=== PATIENT | female | born 1955 | race Caucasian/White ===

== ENCOUNTER 2020-12-06 14:42 | Inpatient (IN) | payer MEDICARE, OTHER ==
--- NOTE | 2020-12-06 15:12 | ED ---
General Adult HPI - General Chief complaint: Shortness of Breath Stated complaint: Dyspnea Time Seen by Provider: 12/06/20 14:46 Source: patient, EMS, RN notes reviewed, old records reviewed (Chart reviewed from [facility]) Mode of arrival: EMS Limitations: no limitations - History of Present Illness Initial comments: Patient is a pleasant 65-year-old female presenting to the emergency Department as a transfer from [facility]. Patient has been complaining of exertional dyspnea progressive over the past 4 days. No cough. Patient states limited ability to have related this time more than 5-10 feet. No chest pain. Patient states she did have repair of her aorta 2 years ago and has been having some symptoms since that time. There is concerned that there may need further repair done. Patient does have known murmur since then. Patient states dyspnea is mild at rest. No leg pain or leg swelling. No fever or cough. Review of Systems ROS Statement: Those systems with pertinent positive or pertinent negative responses have been documented in the HPI. ROS Other: All systems not noted in ROS Statement are negative. Constitutional: Denies: fever Eyes: Denies: eye pain ENT: Denies: ear pain Respiratory: Reports: as per HPI, dyspnea. Denies: cough Cardiovascular: Denies: chest pain Endocrine: Reports: fatigue Gastrointestinal: Denies: abdominal pain Genitourinary: Denies: dysuria Musculoskeletal: Denies: back pain Skin: Denies: rash Neurological: Denies: weakness Past Medical History Past Medical History: Chest Pain / Angina, Heart Failure, Skin Disorder, Thyroid Disorder History of Any Multi-Drug Resistant Organisms: None Reported Past Surgical History: Coronary Bypass/CABG, Tubal Ligation Past Psychological History: Anxiety Smoking Status: Former smoker Past Alcohol Use History: None Reported Past Drug Use History: None Reported General Exam Limitations: no limitations General appearance: alert, in no apparent distress Head exam: Present: normocephalic Eye exam: Present: normal appearance, PERRL ENT exam: Present: normal oropharynx Neck exam: Present: normal inspection Respiratory exam: Present: normal lung sounds bilaterally Cardiovascular Exam: Present: regular rate, normal rhythm, systolic murmur GI/Abdominal exam: Present: soft. Absent: tenderness Extremities exam: Present: normal inspection Neurological exam: Present: alert Psychiatric exam: Present: normal affect, normal mood Skin exam: Present: normal color Course Vital Signs 12/06/20 14:45 Temperature 98.2 F Pulse Rate 72 Respiratory 18 Rate Blood Pressure 178/74 O2 Sat by Pulse 97 Oximetry Medical Decision Making - Medical Decision Making Patient was made aware plan. Dr. Castillo has been paged for admission, covering for Dr. Atwood. Disposition Clinical Impression: Exertional dyspnea Disposition: ADMITTED IP TO THIS HOSP Is patient prescribed a controlled substance at d/c from ED?: No Referrals: Andrey Michael MD [Primary Care Provider] - 1-2 days Decision Time: 15:32
[2020-12-06] MEDS ORDERED: ASPIRIN 325 MG TAB PO STA (15:32)
[2020-12-06] MEDS: FUROSEMIDE 10 MG/ML 4 ML VIAL IV SCH (16:58)
[2020-12-06] MEDS ORDERED: TEMAZEPAM 15 MG CAP PO PRN (19:05)
[2020-12-06] MEDS ORDERED: ALPRAZolam 0.25 MG TAB PO PRN (19:05)
--- NOTE | 2020-12-06 19:36 | XR ---
EXAMINATION TYPE: XR chest 1V portable DATE OF EXAM: 12/06/2020 COMPARISON: NONE HISTORY: Short of breath TECHNIQUE: Single view FINDINGS: Heart is enlarged. There is no gross heart failure. There is some coarsening of interstitia l markings. There are sternal wires. There are chest leads. Costophrenic angles are clear. IMPRESSION: Mild increased lung markings. No obvious heart failure. Cardiomegaly.
[2020-12-06] MEDS: METOPROLOL TARTRATE 25 MG TAB PO SCH (20:22)
[2020-12-06] MEDS: ACETAMINOPHEN TAB 500 MG TAB PO SCH (20:22)
[2020-12-06] MEDS: HEPARIN SODIUM,PORCINE 5,000 UNIT/ML 1 ML VIAL SQ SCH (20:22)
[2020-12-06] MEDS: ATORVASTATIN 20 MG TAB PO SCH (20:23)
--- NOTE | 2020-12-06 20:55 | HP ---
HISTORY AND PHYSICAL DATE OF SERVICE: 12/06/2020 CHIEF COMPLAINT: Shortness of breath. HISTORY OF PRESENT ILLNESS: This is a 65-year-old woman with a past medical history of multiple medical problems, CHF, history of hypothyroidism, history of CAD, CABG, history of anxiety, being followed by Nadira German in the outpatient setting was not feeling well. Today, the patient had shortness of breath which has increased, two years since last aortic surgery patient had at [facility]. The patient presented to [facility] today with complaints of shortness of breath. The patient was unable to walk more than 5 to 10 feet. The patient had repair of aortic aneurysm. Because of increasing difficulty, the patient was transferred to [facility] and was admitted for further evaluation and treatment. There is no history of fever, rigors. No history of headache, loss of consciousness or seizures at this time. The patient is started on IV Lasix. PAST MEDICAL HISTORY: History of CHF, history of aortic surgery, history of anxiety, history of abdominal aortic aneurysm, which was to be managed later by [facility] Cardiology according to the patient. MEDICATIONS: Home medications are: Vitamin E, vitamin D3, Tylenol, vitamin B12, calcium, vitamins, multivitamins, metoprolol, magnesium, levothyroxine, Lexapro, aspirin, and Lipitor. Doses are reviewed. ALLERGIES: None. FAMILY HISTORY: No history of heart disease or strokes in the family. SOCIAL HISTORY: Previous history of smoking. No history of current smoking or alcohol. REVIEW OF SYSTEMS: ENT: No diminished vision. No diminished hearing. Cardiovascular as mentioned earlier. RESPIRATORY: As mentioned earlier. GI no nausea or vomiting. : No dysuria. NERVOUS system: No numbness, weakness. ALLERGY/IMMUNOLOGY: No asthma or hayfever. MUSCULOSKELETAL: As mentioned earlier. HEMATOLOGY/ONCOLOGY: No history of anemia. ENDOCRINE: Hypothyroid. CONSTITUTIONAL: As mentioned earlier. DERMATOLOGY negative. RHEUMATOLOGY: Negative. PSYCHIATRY as mentioned earlier. PHYSICAL EXAM: Patient is alert, oriented x3. The pulse is 72. Blood pressure 178/74, respiration 18, temperature 98.2, pulse ox 97% on 2 L. HEENT: Conjunctivae normal. NECK: No JVD. CARDIOVASCULAR: S1, S2. No S3, no S4. RESPIRATORY: Breath sounds diminished in the bases. A few scattered rhonchi and crackles. ABDOMEN: Soft, obese, nontender. LEGS: No edema. No swelling. NERVOUS SYSTEM: Higher functions as mentioned earlier. Moves all 4 limbs. No focal motor or sensory deficits. LYMPHATICS: No lymph nodes palpable in the neck, axillae or groin. SKIN: No ulcer, rash or bleeding. JOINTS: No active deforming arthropathy. LABS: Covid 19 is negative. ASSESSMENT: 1. Shortness of breath with possible congestive heart failure acute exacerbations, ejection fraction unknown. 2. History of aortic aneurysm repair. 3. Abdominal aortic aneurysm. 4. History of congestive heart failure. 5. Hypothyroidism. 6. History of coronary artery disease, coronary artery bypass grafting. 7. History of anxiety. 8. Obesity with body mass of 39.1. 9. Remote history of nicotine dependence. 10.FULL CODE. RECOMMENDATIONS AND DISCUSSION: In this 65-year-old woman who presented with multiple complex medical issues, we will monitor the patient closely, continue the current management, medications and symptomatic treatment. I would recommend a 2D echo with Doppler and also Lasix. Cardiology consultation. Monitor fluid/electrolyte balance closely. Repeat labs. Monitor creatinine closely. Overall prognosis guarded because of multiple complex medical issues. Further recommendations to follow. A copy of this dictation being forwarded to Dr. Nadira German. MMELMERL / IJN: [id number] / NATHANIEL
[2020-12-06 22:03] LABS: Basophils # (A) 0.1 k/uL (0-0.2); Basophils % (A) 1 %; Eosinophils # (A) 0.2 k/uL (0-0.7); Eosinophils % (A) 2 %; HCT 40.5 % (34.0-46.0); HGB 12.8 gm/dL (11.4-16.0); Lymphocytes # (A) 2.2 k/uL (1.0-4.8); Lymphocytes % (A) 24 %; MCH 30.4 pg (25.0-35.0); MCHC 31.6 g/dL (31.0-37.0); MCV 96.2 fL (80.0-100.0); Mean Platelet Volume 7.4; Monocytes # (A) 0.5 k/uL (0-1.0); Monocytes % (A) 6 %; Neutrophils # (A) 6.1 k/uL (1.3-7.7); Neutrophils % (A) 67 %; Platelet Count 304 k/uL (150-450); RBC 4.21 m/uL (3.80-5.40); RDW 14.7 % (11.5-15.5); WBC 9.1 k/uL (3.8-10.6)
[2020-12-06 22:17] LABS: ALT 32 U/L (4-34); AST 34 U/L (14-36); African American GFR (CKD) >90 (>60 ml/min/1.73 sqM); Albumin 4.2 g/dL (3.5-5.0); Albumin/Globulin Ratio 1.6; Alkaline Phosphatase 88 U/L (38-126); Anion Gap 7 mmol/L; Blood Urea Nitrogen 16 mg/dL (7-17); Calcium 9.7 mg/dL (8.4-10.2); Carbon Dioxide 26 mmol/L (22-30); Chloride 103 mmol/L (98-107); Globulin 2.7 g/dL; Glucose 102 mg/dL (74-99); Non-African American GFR(CKD) 80 (>60 ml/min/1.73 sqM); Potassium 3.8 mmol/L (3.5-5.1); Sodium 136 mmol/L (137-145); Total Bilirubin 0.5 mg/dL (0.2-1.3); Total Protein 6.9 g/dL (6.3-8.2)
[2020-12-07] MEDS: FUROSEMIDE 10 MG/ML 4 ML VIAL IV SCH ×4 (00:25→23:19)
[2020-12-07] MEDS: LEVOTHYROXINE 100 MCG TAB PO SCH (05:48)
[2020-12-07 08:06] LABS: African American GFR (CKD) 81 (>60 ml/min/1.73 sqM); Anion Gap 10 mmol/L; Blood Urea Nitrogen 15 mg/dL (7-17); Calcium 10.1 mg/dL (8.4-10.2); Carbon Dioxide 31 mmol/L (22-30); Chloride 99 mmol/L (98-107); Glucose 89 mg/dL (74-99); Non-African American GFR(CKD) 70 (>60 ml/min/1.73 sqM); Potassium 4.2 mmol/L (3.5-5.1); Sodium 140 mmol/L (137-145)
[2020-12-07] MEDS: MAGNESIUM OXIDE 400 MG TAB PO SCH (08:34)
[2020-12-07] MEDS: PANTOPRAZOLE 40 MG TABLET PO SCH (08:34)
[2020-12-07] MEDS: CHOLECALCIFEROL 25 MCG (1000 IU) TABLET PO SCH (08:35)
[2020-12-07] MEDS: ASCORBIC ACID 500 MG TAB PO SCH (08:35)
[2020-12-07] MEDS: MULTIVITAMINS, THERA 1 EACH TAB PO SCH (08:35)
[2020-12-07] MEDS: CYANOCOBALAMIN 500 MCG TAB PO SCH (08:35)
[2020-12-07] MEDS: CALCIUM CARB-VIT D 500 MG-5 MCG TAB PO SCH (08:35)
[2020-12-07] MEDS: METOPROLOL TARTRATE 25 MG TAB PO SCH ×2 (08:35→21:34)
[2020-12-07] MEDS: ASPIRIN 81 MG PO SCH (08:35)
[2020-12-07] MEDS: HEPARIN SODIUM,PORCINE 5,000 UNIT/ML 1 ML VIAL SQ SCH ×2 (08:36→21:34)
[2020-12-07] MEDS ORDERED: DILTIAZEM DRIP BOLUS FROM BAG 1 MG SOLN IV ONE (08:47)
[2020-12-07] MEDS ORDERED: DILTIAZEM 125 MG in SODIUM CHLORIDE 0.9% 100 ML IV SCH (09:00)
[2020-12-07] MEDS: ACETAMINOPHEN TAB 500 MG TAB PO SCH ×2 (10:15→21:33)
[2020-12-07] MEDS: VITAMIN E (DL,TOCOPHERYL ACET) 400 UNIT CAP PO SCH (10:16)
[2020-12-07] MEDS: PYRIDOXINE 50 MG TAB PO SCH (10:16)
[2020-12-07] MEDS: ESCITALOPRAM 20 MG TAB PO SCH (10:16)
[2020-12-07] MEDS ORDERED: ASPIRIN 325 MG TAB PO SCH (12:00)
[2020-12-07 12:10] LABS: Basophils # (A) 0.09 X 10*3/uL (0.00-0.10); Eosinophils # (A) 0.26 X 10*3/uL (0.04-0.35); HCT 41.1 % (37.2-46.3); HGB 13.2 g/dL (12.0-15.0); Lymphocytes # (A) 2.53 X 10*3/uL (0.90-5.00); Lymphocytes % (A) 29.5 %; MCH 31.2 pg (27.0-32.0); MCHC 32.1 g/dL (32.0-37.0); MCV 97.2 fL (80.0-97.0); Mean Platelet Volume 10.6 fL (9.5-12.2); Monocytes % (A) 9.3 %; Neutrophils # (A) 4.88 X 10*3/uL (1.80-7.70); Platelet Count 336 X 10*3/uL (140-440); RBC 4.23 X 10*6/uL (4.10-5.20); RDW 14.6 % (11.5-14.5); WBC 8.58 X 10*3/uL (4.50-10.00)
--- NOTE | 2020-12-07 15:37 | P.CRDCN ---
<Jane Mckinnon - Last Filed: 12/07/20 15:36> History of Present Illness Consult date: 12/07/20 History of present illness: CHIEF COMPLAINT: Shortness of breath HISTORY OF PRESENT ILLNESS: This is a 65-year-old female with a past medical history significant for hypertension, hyperlipidemia, and aortic aneurysm repair 2 years ago. Patient follows with a furniture inspector out of [facility] and a cardiothoracic surgeon at [facility] in [place]. We have been asked to see the patient in consultation for shortness of breath. Patient was transferred from [facility] for further evaluation Patient states since having her aortic surgery 2 years ago she has been experiencing shortness of breath. She states over the past week or shortness of breath has worsened. She states she is only short of breath with exertion and denies any shortness of breath at rest. She denies any chest pain or pressure. Patient states that she was told by her cardiothoracic surgeon she would need to have her aneurysm repaired by the end of 2019 and states "he told me the repair the coming undone and needs to be fixed again". Patient reports due to the Covid pandemic, she has not underwent surgery for this. DIAGNOSTICS: EKG reveals sinus mechanism with no signs of acute ischemia Chest xray mild increased lung markings. No obvious heart failure. Cardiomegaly. Laboratory data: WBC 8.58. Hemoglobin 13.2. Platelet count 336. D-dimer 2.28. Sodium 140. Potassium 4.2. BUN 15. Creatinine 0.87. Troponin negative 2. Current home cardiac medications include metoprolol tartrate 25 mg twice a day, aspirin 81 mg daily, Lipitor 20 mg daily Patient underwent CTA of chest abdomen and pelvis at [facility] which according to transfer records revealed irregularity of the ascending aorta at aortic valve and origin of arch felt to represent postop changes. NAP of the aorta seen and size of ascending is within normal limits. Descending thoracic aorta is prominent, [id number] aneurysmal, upwards of 3.5 cm stable in comparison to 2018 CT. Stable AAA aneurysms proximal SMA 3.6 cm and distal 3.7 cm REVIEW OF SYSTEMS: At the time of my exam: CONSTITUTIONAL: Denies fever or chills. HEENT: Denies blurred vision, vision changes, or eye pain. Denies hemoptysis CARDIOVASCULAR: Denies chest pain, orthopnea, PND or palpitations RESPIRATORY: Reports shortness of breath with exertion GASTROINTESTINAL: Denies abdominal pain. Denies nausea or vomiting. HEMATOLOGIC: Denies bleeding disorders. GENITOURINARY: Denies any blood in urine. SKIN: Denies pruitis. Denies rash. PHYSICAL EXAM: VITAL SIGNS: Reviewed. GENERAL: Well-developed in no acute distress. HEENT: Head is normocephalic. Pupils are equal, round. Sclerae anicteric. Mucous membranes of the mouth are moist. Neck supple. No JVD or thyromegaly LUNGS: Respirations even and unlabored. Lungs diminished bilaterally with fine bibasilar rales HEART: Regular rate and rhythm. S1 and S2 heard. Systolic murmur auscultated. ABDOMEN: Soft. Nondistended. Nontender. EXTREMITIES: Normal range of motion. No clubbing or cyanosis. Peripheral pulses intact. Trace lower extremity edema NEUROLOGIC: Awake and alert. Oriented x 3. ASSESSMENT: Exertional shortness of breath Suspected acute heart failure, EF unknown, echo pending, not on diuretic therapy outpatient Hyperlipidemia History of aortic aneurysm repair, 2 years ago History of abdominal aortic aneurysm and thoracic aortic aneurysm Hypothyroidism Elevated d-dimer, patient had CTA performed at [facility] with no mention of PE per radiology dictation Obesity: BMI 39.1 PLAN: Obtain 2-D echo to assess cardiac structure and function Resume home cardiac medications Continue IV Lasix Obtain BNP Daily weights Accurate I&O Monitor kidney function Further recommendations pending patient's course Nurse practitioner note has been reviewed by physician. Signing provider agrees with the documented findings, assessment, and plan of care. Past Medical History Past Medical History: Chest Pain / Angina, Heart Failure, Skin Disorder, Thyroid Disorder History of Any Multi-Drug Resistant Organisms: None Reported Past Surgical History: Coronary Bypass/CABG, Tubal Ligation Past Psychological History: Anxiety Smoking Status: Former smoker Past Alcohol Use History: None Reported Past Drug Use History: None Reported Medications and Allergies Home Medications Medication Instructions Recorded Confirmed Type Acetaminophen [Tylenol] 1,500 mg PO BID 12/06/20 12/06/20 History Ascorbic Acid [Vitamin C] 1,000 mg PO DAILY 12/06/20 12/06/20 History Aspirin EC [Ecotrin Low Dose] 81 mg PO DAILY 12/06/20 12/06/20 History Atorvastatin [Lipitor] 20 mg PO HS 12/06/20 12/06/20 History Calcium Carbonate [Calcium] 600 mg PO DAILY 12/06/20 12/06/20 History Cholecalciferol [Vitamin D3 (25 25 mcg PO DAILY 12/06/20 12/06/20 History Mcg = 1000 Iu)] Cyanocobalamin (Vitamin B-12) 1,000 mcg PO DAILY 12/06/20 12/06/20 History [Vitamin B-12] Escitalopram [Lexapro] 20 mg PO DAILY 12/06/20 12/06/20 History Levothyroxine Sodium [Synthroid] 100 mcg PO DAILY 12/06/20 12/06/20 History Magnesium 250 mg PO DAILY 12/06/20 12/06/20 History Metoprolol Tartrate 25 mg PO BID 12/06/20 12/06/20 History Multivitamins, Thera [Multivitamin 1 tab PO DAILY 12/06/20 12/06/20 History (formulary)] Pyridoxine HCl (Vitamin B6) 100 mg PO DAILY 12/06/20 12/06/20 History [Vitamin B-6] Vitamin E 400 unit PO DAILY 12/06/20 12/06/20 History Allergies Allergy/AdvReac Type Severity Reaction Status Date / Time No Known Allergies Allergy Verified 12/06/20 16:28 Physical Exam Vitals: Vital Signs Temp Pulse Pulse Resp BP BP Pulse Ox 12/07/20 08:10 97.7 F 69 16 147/56 94 L 12/07/20 02:30 98.0 F 67 16 134/66 92 L 12/07/20 02:00 8 L 15 12/07/20 00:10 8 L 15 12/07/20 00:00 98.2 F 82 15 171/55 92 L 12/06/20 20:23 78 18 164/52 97 12/06/20 17:00 70 18 184/58 98 12/06/20 14:45 98.2 F 72 18 178/74 97 Intake and Output 12/06/20 12/07/20 12/07/20 22:59 06:59 14:59 Other: Voiding Method Toilet # Voids 1 Weight 90.718 kg Results 12/07/20 06:55 12/07/20 06:55 Cardiac Enzymes 12/06/20 12/06/20 12/06/20 Range/Units 18:28 21:33 21:33 AST 34 (14-36) U/L Troponin I <0.012 <0.012 (0.000-0.034) ng/mL CBC 12/06/20 12/07/20 Range/Units 21:33 06:55 WBC 9.1 8.58 (3.8-10.6) k/uL RBC 4.21 4.23 (3.80-5.40) m/uL Hgb 12.8 13.2 (11.4-16.0) gm/dL Hct 40.5 41.1 (34.0-46.0) % Plt Count 304 336 (150-450) k/uL Comprehensive Metabolic Panel 12/06/20 12/07/20 Range/Units 21:33 06:55 Sodium 136 L 140 (137-145) mmol/L Potassium 3.8 4.2 (3.5-5.1) mmol/L Chloride 103 99 (98-107) mmol/L Carbon Dioxide 26 31 H (22-30) mmol/L BUN 16 15 (7-17) mg/dL Creatinine 0.79 0.87 (0.52-1.04) mg/dL Glucose 102 H 89 (74-99) mg/dL Calcium 9.7 10.1 (8.4-10.2) mg/dL AST 34 (14-36) U/L ALT 32 (4-34) U/L Alkaline Phosphatase 88 (38-126) U/L Total Protein 6.9 (6.3-8.2) g/dL Albumin 4.2 (3.5-5.0) g/dL Current Medications Generic Name Dose Route Start Last Admin Trade Name Juniorq PRN Reason Stop Dose Admin Acetaminophen 1,500 mg 12/06/20 21:00 12/07/20 10:15 Acetaminophen Tab 500 Mg Tab PO 1,500 mg BID ERIC Administration Alprazolam 0.25 mg 12/06/20 19:05 Alprazolam 0.25 Mg Tab PO TID PRN Anxiety Ascorbic Acid 1,000 mg 12/07/20 09:00 12/07/20 08:35 Ascorbic Acid 500 Mg Tab PO 1,000 mg DAILY ERIC Administration Aspirin 81 mg 12/07/20 09:00 12/07/20 08:35 Aspirin 81 Mg PO 81 mg DAILY ERIC Administration Atorvastatin Calcium 20 mg 12/06/20 21:00 12/06/20 20:23 Atorvastatin 20 Mg Tab PO 20 mg HS ERIC Administration Calcium Carbonate 1 each 12/07/20 09:00 12/07/20 08:35 Calcium Carb-Vit D 500 Mg-5 Mcg Tab PO 1 each DAILY ERIC Administration Cholecalciferol 25 mcg 12/07/20 09:00 12/07/20 08:35 Cholecalciferol 25 Mcg (1000 Iu) Tablet PO 25 mcg DAILY ERIC Administration Cyanocobalamin 1,000 mcg 12/07/20 09:00 12/07/20 08:35 Cyanocobalamin 500 Mcg Tab PO 1,000 mcg DAILY ERIC Administration Escitalopram Oxalate 20 mg 12/07/20 09:00 12/07/20 10:16 Escitalopram 20 Mg Tab PO 20 mg DAILY ERIC Administration Furosemide 40 mg 12/06/20 16:00 12/07/20 08:36 Furosemide 10 Mg/Ml 4 Ml Vial IV 40 mg Q8H ERIC Administration Heparin Sodium (Porcine) 5,000 unit 12/06/20 21:00 12/07/20 08:36 Heparin Sodium,Porcine 5,000 Unit/Ml 1 Ml Vial SQ 5,000 unit Q12HR ERIC Administration Levothyroxine Sodium 100 mcg 12/07/20 06:30 12/07/20 05:48 Levothyroxine 100 Mcg Tab PO 100 mcg DAILY@0630 ERIC Administration Magnesium Oxide 400 mg 12/07/20 09:00 12/07/20 08:34 Magnesium Oxide 400 Mg Tab PO 400 mg DAILY ERIC Administration Metoprolol Tartrate 25 mg 12/06/20 21:00 12/07/20 08:35 Metoprolol Tartrate 25 Mg Tab PO 25 mg BID ERIC Administration Multivitamins 1 each 12/07/20 09:00 12/07/20 08:35 Multivitamins, Thera 1 Each Tab PO 1 each DAILY ERIC Administration Pantoprazole Sodium 40 mg 12/07/20 07:30 12/07/20 08:34 Pantoprazole 40 Mg Tablet PO 40 mg AC-BRKFST ERIC Administration Pyridoxine HCl 100 mg 12/07/20 09:00 12/07/20 10:16 Pyridoxine 50 Mg Tab PO 100 mg DAILY ERIC Administration Temazepam 15 mg 12/06/20 19:05 Temazepam 15 Mg Cap PO HS PRN Insomnia Vitamin E 400 unit 12/07/20 09:00 12/07/20 10:16 Vitamin E (Dl,Tocopheryl Acet) 400 Unit Cap PO 400 unit DAILY ERIC Administration Intake and Output 12/06/20 12/07/20 12/07/20 22:59 06:59 14:59 Other: Voiding Method Toilet # Voids 1 Weight 90.718 kg 12/07/20 06:55 12/07/20 06:55 <Jose Ibarra - Last Filed: 12/07/20 20:42> Physical Exam Vitals: Vital Signs Temp Pulse Resp BP Pulse Ox 12/07/20 19:20 98.1 F 86 16 144/62 94 L 12/07/20 15:00 97.9 F 70 19 149/52 92 L 12/07/20 08:10 97.7 F 69 16 147/56 94 L 12/07/20 02:30 98.0 F 67 16 134/66 92 L 12/07/20 02:00 8 L 15 12/07/20 00:10 8 L 15 12/07/20 00:00 98.2 F 82 15 171/55 92 L Intake and Output 12/07/20 12/07/20 12/07/20 06:59 14:59 22:59 Intake Total 240 Balance 240 Intake: Oral 240 Other: Voiding Method Toilet Toilet # Voids 1 1 Weight 90.718 kg Results 12/07/20 06:55 12/07/20 06:55 Cardiac Enzymes 12/06/20 12/06/20 Range/Units 21:33 21:33 AST 34 (14-36) U/L Troponin I <0.012 (0.000-0.034) ng/mL Coagulation 12/07/20 Range/Units 16:45 PT 10.7 (9.0-12.0) sec CBC 12/06/20 12/07/20 Range/Units 21:33 06:55 WBC 9.1 8.58 (3.8-10.6) k/uL RBC 4.21 4.23 (3.80-5.40) m/uL Hgb 12.8 13.2 (11.4-16.0) gm/dL Hct 40.5 41.1 (34.0-46.0) % Plt Count 304 336 (150-450) k/uL Comprehensive Metabolic Panel 12/06/20 12/07/20 Range/Units 21:33 06:55 Sodium 136 L 140 (137-145) mmol/L Potassium 3.8 4.2 (3.5-5.1) mmol/L Chloride 103 99 (98-107) mmol/L Carbon Dioxide 26 31 H (22-30) mmol/L BUN 16 15 (7-17) mg/dL Creatinine 0.79 0.87 (0.52-1.04) mg/dL Glucose 102 H 89 (74-99) mg/dL Calcium 9.7 10.1 (8.4-10.2) mg/dL AST 34 (14-36) U/L ALT 32 (4-34) U/L Alkaline Phosphatase 88 (38-126) U/L Total Protein 6.9 (6.3-8.2) g/dL Albumin 4.2 (3.5-5.0) g/dL Current Medications Generic Name Dose Route Start Last Admin Trade Name Freq PRN Reason Stop Dose Admin Acetaminophen 1,500 mg 12/06/20 21:00 12/07/20 10:15 Acetaminophen Tab 500 Mg Tab PO 1,500 mg BID ERIC Administration Alprazolam 0.25 mg 12/06/20 19:05 Alprazolam 0.25 Mg Tab PO TID PRN Anxiety Ascorbic Acid 1,000 mg 12/07/20 09:00 12/07/20 08:35 Ascorbic Acid 500 Mg Tab PO 1,000 mg DAILY ERIC Administration Aspirin 81 mg 12/07/20 09:00 12/07/20 08:35 Aspirin 81 Mg PO 81 mg DAILY ERIC Administration Atorvastatin Calcium 20 mg 12/06/20 21:00 12/06/20 20:23 Atorvastatin 20 Mg Tab PO 20 mg HS ERIC Administration Calcium Carbonate 1 each 12/07/20 09:00 12/07/20 08:35 Calcium Carb-Vit D 500 Mg-5 Mcg Tab PO 1 each DAILY ERIC Administration Cholecalciferol 25 mcg 12/07/20 09:00 12/07/20 08:35 Cholecalciferol 25 Mcg (1000 Iu) Tablet PO 25 mcg DAILY ERIC Administration Cyanocobalamin 1,000 mcg 12/07/20 09:00 12/07/20 08:35 Cyanocobalamin 500 Mcg Tab PO 1,000 mcg DAILY ERIC Administration Escitalopram Oxalate 20 mg 12/07/20 09:00 12/07/20 10:16 Escitalopram 20 Mg Tab PO 20 mg DAILY ERIC Administration Furosemide 40 mg 12/06/20 16:00 12/07/20 16:33 Furosemide 10 Mg/Ml 4 Ml Vial IV 40 mg Q8H ERIC Administration Heparin Sodium (Porcine) 5,000 unit 12/06/20 21:00 12/07/20 08:36 Heparin Sodium,Porcine 5,000 Unit/Ml 1 Ml Vial SQ 5,000 unit Q12HR ERIC Administration Levothyroxine Sodium 100 mcg 12/07/20 06:30 12/07/20 05:48 Levothyroxine 100 Mcg Tab PO 100 mcg DAILY@0630 ERIC Administration Magnesium Oxide 400 mg 12/07/20 09:00 12/07/20 08:34 Magnesium Oxide 400 Mg Tab PO 400 mg DAILY ERIC Administration Metoprolol Tartrate 25 mg 12/06/20 21:00 12/07/20 08:35 Metoprolol Tartrate 25 Mg Tab PO 25 mg BID ERIC Administration Multivitamins 1 each 12/07/20 09:00 12/07/20 08:35 Multivitamins, Thera 1 Each Tab PO 1 each DAILY ERIC Administration Pantoprazole Sodium 40 mg 12/07/20 07:30 12/07/20 08:34 Pantoprazole 40 Mg Tablet PO 40 mg AC-BRKFST ERIC Administration Pyridoxine HCl 100 mg 12/07/20 09:00 12/07/20 10:16 Pyridoxine 50 Mg Tab PO 100 mg DAILY ERIC Administration Temazepam 15 mg 12/06/20 19:05 Temazepam 15 Mg Cap PO HS PRN Insomnia Vitamin E 400 unit 12/07/20 09:00 12/07/20 10:16 Vitamin E (Dl,Tocopheryl Acet) 400 Unit Cap PO 400 unit DAILY ERIC Administration Intake and Output 12/07/20 12/07/20 12/07/20 06:59 14:59 22:59 Intake Total 240 Balance 240 Intake: Oral 240 Other: Voiding Method Toilet Toilet # Voids 1 1 Weight 90.718 kg 12/07/20 06:55 12/07/20 06:55
--- NOTE | 2020-12-07 16:24 | PN ---
PROGRESS NOTE DATE OF SERVICE: 12/07/2020 INTERVAL HISTORY: This 65-year-old woman was admitted with shortness of breath, possibly CHF acute exacerbation. The patient is on IV Lasix q.8 at this time. The D-dimer was elevated at 2.28. PAST MEDICAL HISTORY: Reviewed. REVIEW OF SYSTEMS: CARDIOVASCULAR: No angina. RESPIRATORY: As mentioned earlier. GI: As mentioned earlier. : No dysuria. NERVOUS SYSTEM: No numbness or weakness. ALLERGY/IMMUNOLOGY: No asthma or hayfever. CURRENT MEDICATIONS: Are Tylenol, Xanax, vitamin C, aspirin, Lipitor, Oscal with vitamin D, Lasix, heparin, Synthroid, magnesium oxide, multivitamins. PHYSICAL EXAM: GENERAL: Patient is alert and oriented times three. VITAL SIGNS: Pulse 69, blood pressure 147/50, respirations 16, temperature 97.7, pulse ox 94% on room air. HEENT: Conjunctivae normal. Oral mucosa moist. NECK: No jugular venous distention. No carotid bruits. No lymph node enlargement. RESPIRATORY: Breath sounds diminished at the bases. A few scattered rhonchi. HEART: S1 and S2, muffled. ABDOMEN: Soft, no tenderness. No masses palpable. EXTREMITIES: No edema, no swelling. NERVOUS: No focal deficits. LABS: CBC within normal limits. Sodium 140, potassium 4.2. ASSESSMENT: 1. Shortness of breath for evaluation possible congestive heart failure acute exacerbation with ejection fraction unknown. 2. Elevated D-dimer. 3. History of aortic aneurysm repair. 4. Abdominal aortic aneurysm. 5. History of congestive heart failure. 6. Hypothyroidism. 7. History of coronary artery disease, coronary artery bypass graft. 8. History of anxiety. 9. Obesity with body mass of 39.5. 10.Remote history of nicotine dependence. 11.FULL CODE. RECOMMENDATIONS AND DISCUSSION: I recommend to continue current management and continue symptomatic treatment. Otherwise continue with Lasix. I would also recommend a CT angio of the chest. Closely follow with Cardiology. A 2D echo was noted. Repeat labs. Guarded prognosis. Further recommendations to follow. MMODL / IJN: [id number] /
--- NOTE | 2020-12-07 16:40 | CT ---
EXAMINATION TYPE: CT angio chest DATE OF EXAM: 12/07/2020 COMPARISON: CT from outside institution 12/06/2020 HISTORY: elevated d-dimer CT DLP: 455 mGycm Automated exposure control for dose reduction was used. CONTRAST: CTA scan of the thorax is performed with IV Contrast, patient injected with 65cc mL of Isovue 300, pu lmonary embolism protocol. MIP images are created and reviewed. 3D reconstructed images are created on an independent workstation and reviewed. FINDINGS: LUNGS: The lungs are grossly clear, there is no concerning parenchymal mass or nodule identified. T here are some parenchymal bands present at the left lung base There is no pleural effusion or pneumot horax seen. The tracheobronchial tree is patent. AORTA: The ascending aorta is not enhanced, thoracic aortic aneurysm with tortuosity is again seen. The luminal filling defect seen on outside CTA is not seen on the unenhanced images. Metallic density is present at the root of the aorta. There may be some slight interval increase in size in patient's aneurysm as compared to prior CTA. Ascending aorta on noncontrast exam measured approximately 4.8 cm on unenhanced image where as on outside images is measured approximately 4.5 cm. Proximal descending aorta measured at 4.2 cm where as on outside study is measured approximately 3.8 cm. At the level of the hiatus the aorta measures 4.1 cm on outside study and currently measures approximately same. MEDIASTINUM: There is satisfactory enhancement of the pulmonary artery and its branches, there is no CT evidence for pulmonary embolism. Precarinal node is enlarged, there are some prevascular nodes. No pericardial effusion is seen. Heart is enlarged. There are coronary artery calcifications OTHER: There is a scoliotic curvature to the spine, there is thoracic spondylosis, patient is post m edian sternotomy. IMPRESSION: NO PULMONARY EMBOLISM. ABNORMALITY WITHIN THE ASCENDING AORTA MAY BE POSTSURGICAL SEEN ON OUTSIDE CTA , CORRELATE WITH PATIENT'S SURGICAL HISTORY. THERE IS THORACIC AORTIC ANEURYSM PRESENT WHICH MAY HAVE INCREASED SLIGHTLY IN SIZE ALTHOUGH THERE ARE DIFFERENCES IN TECHNIQUE. CARDIOMEGALY. A [place] critical message alert has been initiated for Ricardo Castillo MD via the [employer] System on 12/07/2020 4:37 PM. This message alert has been sent to Ricardo Castillo MD via the preferences provided by the clinician for the receipt of Radiology Critical Findings. Message ID [id number].
--- NOTE | 2020-12-07 17:47 | ECHOF ---
Referral Reason:Exertional dyspnea MEASUREMENTS -------- HEIGHT: 152.4 cm WEIGHT: 90.7 kg BP: RVIDd: 2.4 cm (< 3.3) IVSd: 1.3 cm (0.6 - 1.1) LVIDd: 5.8 cm (3.9 - 5.3) LVPWd: 1.4 cm (0.6 - 1.1) IVSs: 1.9 cm LVIDs: 3.8 cm LVPWs: 1.9 cm LAESV Index (A-L): 54.78 ml/m Ao Diam: 2.4 cm (2.0 - 3.7) AV Cusp: 1.4 cm (1.5 - 2.6) LA Diam: 4.0 cm (2.7 - 3.8) MV EXCURSION: 20.477 mm (> 18.000) MV EF SLOPE: 86 mm/s (70 - 150) EPSS: 1.3 cm MV E Eduardo: 1.26 m/s MV DecT: 152 ms MV A Eduardo: 0.78 m/s MV E/A Ratio: 1.61 AV maxP.86 mmHg AV meanP.95 mmHg AR PHT: 175 ms RAP: 5.00 mmHg RVSP: 40.30 mmHg FINDINGS -------- This was a technically good study. The left ventricle is moderately dilated. There is mild concentric left ventricular hypertrophy. Overall left ventricular systolic function is low-normal with, an EF between 50 - 55 %. Increased L AP. Grade 2 Diastolic Dysfuntion. The right ventricle is normal in size. LA is severely dilated >40 ml/m2 The right atrial size is normal. Aortic valve is trileaflet and is mildly thickened. There is severe aortic regurgitation. There i s mild aortic stenosis present. Peak/mean gradient across the Aortic Valve is 27.86mmHg / 16.95mmHg . The mitral valve is normal. Moderate mitral regurgitation is present. The tricuspid valve appears structurally normal. Mild tricuspid regurgitation present. There is m ild pulmonary hypertension. The right ventricular systolic pressure, as measured by Doppler, is 40. 30mmHg. There is no pulmonic regurgitation present. The aortic root size is normal. Normal inferior vena cava with normal inspiratory collapse consistent with estimated right atrial pre ssure of 5 mmHg. There is no pericardial effusion. CONCLUSIONS -------- 1. The left ventricle is moderately dilated. 2. There is mild concentric left ventricular hypertrophy. 3. Overall left ventricular systolic function is low-normal with, an EF between 50 - 55 %. 4. Increased LAP. Grade 2 Diastolic Dysfuntion. 5. LA is severely dilated >40 ml/m2 6. Aortic valve is trileaflet and is mildly thickened. 7. There is severe aortic regurgitation. 8. There is mild aortic stenosis present. 9. Peak/mean gradient across the Aortic Valve is 27.86mmHg / 16.95mmHg. 10. Moderate mitral regurgitation is present. 11. Mild tricuspid regurgitation present. 12. There is mild pulmonary hypertension. 13. The right ventricular systolic pressure, as measured by Doppler, is 40.30mmHg. 14. There is no pericardial effusion. MAT MAKING MACHINE TENDER: Nimisha Cronin RDCS
[2020-12-07 18:00] LABS: Prothrombin Time 10.7 sec (9.0-12.0)
[2020-12-07] MEDS: ATORVASTATIN 20 MG TAB PO SCH (21:34)
[2020-12-08] MEDS: PANTOPRAZOLE 40 MG TABLET PO SCH (07:25)
[2020-12-08] MEDS: LEVOTHYROXINE 100 MCG TAB PO SCH (07:25)
[2020-12-08] MEDS: FUROSEMIDE 10 MG/ML 4 ML VIAL IV SCH (07:27)
[2020-12-08] MEDS: MAGNESIUM OXIDE 400 MG TAB PO SCH (08:53)
[2020-12-08] MEDS: CYANOCOBALAMIN 500 MCG TAB PO SCH (08:53)
[2020-12-08] MEDS: ASCORBIC ACID 500 MG TAB PO SCH (08:53)
[2020-12-08] MEDS: ASPIRIN 81 MG PO SCH (08:53)
[2020-12-08] MEDS: PYRIDOXINE 50 MG TAB PO SCH (08:54)
[2020-12-08] MEDS: ESCITALOPRAM 20 MG TAB PO SCH (08:54)
[2020-12-08] MEDS: CHOLECALCIFEROL 25 MCG (1000 IU) TABLET PO SCH (08:54)
[2020-12-08] MEDS: CALCIUM CARB-VIT D 500 MG-5 MCG TAB PO SCH (08:54)
[2020-12-08] MEDS: HEPARIN SODIUM,PORCINE 5,000 UNIT/ML 1 ML VIAL SQ SCH (08:54)
[2020-12-08] MEDS: MULTIVITAMINS, THERA 1 EACH TAB PO SCH (08:54)
[2020-12-08] MEDS: VITAMIN E (DL,TOCOPHERYL ACET) 400 UNIT CAP PO SCH (08:54)
[2020-12-08] MEDS: ACETAMINOPHEN TAB 500 MG TAB PO SCH (08:55)
[2020-12-08 09:04] LABS: Basophils % (A) 1.1 %; Eosinophils # (A) 0.41 X 10*3/uL (0.04-0.35); Eosinophils % (A) 4.4 %; HCT 42.7 % (37.2-46.3); HGB 13.7 g/dL (12.0-15.0); Lymphocytes # (A) 2.87 X 10*3/uL (0.90-5.00); Lymphocytes % (A) 30.6 %; MCH 31.3 pg (27.0-32.0); MCHC 32.1 g/dL (32.0-37.0); MCV 97.5 fL (80.0-97.0); Mean Platelet Volume 10.2 fL (9.5-12.2); Monocytes # (A) 0.96 X 10*3/uL (0.20-1.00); Monocytes % (A) 10.2 %; Neutrophils % (A) 53.4 %; Platelet Count 336 X 10*3/uL (140-440); RBC 4.38 X 10*6/uL (4.10-5.20); RDW 14.6 % (11.5-14.5); WBC 9.37 X 10*3/uL (4.50-10.00)
[2020-12-08] MEDS: METOPROLOL TARTRATE 25 MG TAB PO SCH (09:05)
[2020-12-08 09:56] VITALS: BP 163/51; PULSE 72; RESP 18; TEMP 97.6
[2020-12-08 10:08] LABS: African American GFR (CKD) 49.9 (60.0-200.0); Anion Gap 13.5 mmol/L (4.00-12.00); BUN/Creat Ratio 22.31 Ratio (12.00-20.00); Calcium 10.2 mg/dL (8.7-10.3); Carbon Dioxide 28.5 mmol/L (21.6-31.8); Potassium 4.5 mmol/L (3.5-5.5)
--- NOTE | 2020-12-08 11:15 | XR ---
EXAMINATION TYPE: XR chest 1V portable DATE OF EXAM: 12/08/2020 COMPARISON: Chest x-ray 12/06/2020 HISTORY: Congestive heart failure TECHNIQUE: Single frontal view of the chest is obtained. FINDINGS: Patient is post median sternotomy and the heart remains enlarged. Aorta is dense and aneur ysmal, tortuous. No evident pneumothorax or pleural effusion. There are overlying leads. Bandlike are a of increased attenuation in the left upper lobe likely reflects atelectasis or scarring. IMPRESSION: Cardiomegaly, postop changes and additional findings above
--- NOTE | 2020-12-08 13:36 | P.PN ---
Subjective Progress Note Date: 12/08/20 CHIEF COMPLAINT: Shortness of breath HISTORY OF PRESENT ILLNESS: This is a 65-year-old female with a past medical history significant for hypertension, hyperlipidemia, and aortic aneurysm repair 2 years ago. Patient follows with a rougher operator out of [facility] and a cardiothoracic surgeon at [facility] in [place]. We have been asked to see the patient in consultation for shortness of breath. Patient was transferred from [facility] for further evaluation Patient states since having her aortic surgery 2 years ago she has been experiencing shortness of breath. She states over the past week or shortness of breath has worsened. She states she is only short of breath with exertion and denies any shortness of breath at rest. She denies any chest pain or pressure. Patient states that she was told by her cardiothoracic surgeon she would need to have her aneurysm repaired by the end of 2019 and states "he told me the repair the coming undone and needs to be fixed again". Patient reports due to the Covid pandemic, she has not underwent surgery for this. EKG reveals sinus mechanism with no signs of acute ischemia Chest xray mild increased lung markings. No obvious heart failure. Cardiomegaly. Laboratory data: WBC 8.58. Hemoglobin 13.2. Platelet count 336. D-dimer 2.28. Sodium 140. Potassium 4.2. BUN 15. Creatinine 0.87. Troponin negative 2. Current home cardiac medications include metoprolol tartrate 25 mg twice a day, aspirin 81 mg daily, Lipitor 20 mg daily Patient underwent CTA of chest abdomen and pelvis at [facility] which according to transfer records revealed irregularity of the ascending aorta at a ortic valve and origin of arch felt to represent postop changes. NAP of the aorta seen and size of ascending is within normal limits. Descending thoracic aorta is prominent, [id number] aneurysmal, upwards of 3.5 cm stable in comparison to 2018 CT. Stable AAA aneurysms proximal SMA 3.6 cm and distal 3.7 cm 12/08/2020 Patient examined this morning at the bedside. She denies chest pain or pressure. She denies shortness of breath. She remains on IV Lasix. Echocardio gram completed revealing ejection fraction 50-55%, grade 2 diastolic dysfunction, severe aortic regurgitation, mild aortic stenosis, moderate mitral regurgitation, mild tricuspid regurgitation, and mild pulmonary hypertension. PHYSICAL EXAM: VITAL SIGNS: Reviewed. GENERAL: Well-developed in no acute distress. HEENT: Head is normocephalic. Pupils are equal, round. Sclerae anicteric. Mucous membranes of the mouth are moist. Neck supple. No JVD or thyromegaly LUNGS: Respirations even and unlabored. Lungs diminished bilaterally. HEART: Regular rate and rhythm. S1 and S2 heard. Systolic murmur auscultated. ABDOMEN: Soft. Nondistended. Nontender. EXTREMITIES: Normal range of motion. No clubbing or cyanosis. Peripheral pulses intact. No lower extremity edema NEUROLOGIC: Awake and alert. Oriented x 3. ASSESSMENT: Exertional shortness of breath Acute diastolic heart failure, EF 50-55%, not on diuretic therapy outpatient Severe aortic regurgitation Hyperlipidemia History of aortic aneurysm repair, 2 years ago History of abdominal aortic aneurysm and thoracic aortic aneurysm Hypothyroidism Elevated d-dimer, patient had CTA performed at [facility] with no mention of PE per radiology dictation Obesity: BMI 39.1 PLAN: Transition patient to oral Lasix. 40 mg daily Continue additional cardiac medications Patient is anxious to be discharged home today. Agreeable to discharge home today from a cardiac standpoint. Patient to follow-up outpatient with her rougher operator and also with her cardiothoracic surgeon for further evaluation of aortic valve replacement Nurse practitioner note has been reviewed by physician. Signing provider agrees with the documented findings, assessment, and plan of care. Objective - Vital Signs Vital signs: Vital Signs Temp 97.6 F 12/08/20 08:35 Pulse 72 12/08/20 08:35 Resp 18 12/08/20 08:35 BP 163/51 12/08/20 08:35 Pulse Ox 96 12/08/20 08:35 Intake & Output 12/07/20 12/08/20 12/08/20 18:59 06:59 18:59 Intake Total 240 180 Output Total 300 Balance 240 -300 180 Weight 95.844 kg Intake: Oral 240 180 Output: Urine 300 Other: Voiding Method Toilet Toilet Toilet # Voids 1 2 400 - Labs CBC & Chem 7: 12/08/20 05:42 12/08/20 05:42 Labs: Abnormal Lab Results - Last 24 Hours (Table) 12/08/20 12/08/20 Range/Units 05:42 05:42 MCV 97.5 H (80.0-97.0) fL RDW 14.6 H (11.5-14.5) % Eosinophils # 0.41 H (0.04-0.35) X 10*3/uL Anion Gap 13.50 H (4.00-12.00) mmol/L BUN 29.0 H (9.0-27.0) mg/dL Est GFR (CKD-EPI)AfAm 49.9 L (60.0-200.0) Est GFR (CKD-EPI)NonAf 43.0 L (60.0-200.0) BUN/Creatinine Ratio 22.31 H (12.00-20.00) Ratio
--- NOTE | 2020-12-08 20:15 | DS ---
DISCHARGE SUMMARY DATE OF SERVICE: 12/08/2020 FINAL DIAGNOSES: 1. Shortness of breath, possibly congestive heart failure acute exacerbation with acute on chronic diastolic dysfunction, ejection fraction 50-55 percent. 2. Moderate mitral regurgitation. 3. Mild aortic stenosis on the 2D echo. 4. Elevated D-dimer with no evidence of pulmonary embolism. 5. History of aortic aneurysm repair. 6. Abdominal aortic aneurysm history. 7. History of congestive heart failure. 8. Hypothyroidism. 9. History of coronary artery disease, coronary artery bypass grafting. 10.History of anxiety. 11.Obesity with body mass of 39.5. 12.Remote history of nicotine dependence. 13.FULL CODE. DISCHARGE DISPOSITION: The patient will be discharged in stable condition with guarded prognosis. Discharge cleared by Cardiology. HISTORY OF PRESENT ILLNESS: This 65-year-old woman with a past medical history of multiple medical problems including CHF, acute exacerbation. Patient treated with diuretics, improved significantly. Patient also seeing a special shopper elsewhere. Cardiology cleared the patient for discharge. On exam, vitals stable. Cardiovascular: S1, S2. Abdomen soft. Nervous system: No focal deficits. Labs are reviewed. DISCHARGE ADVICE AND MEDICATIONS: 1. Diet is cardiac diet. 2. Activity limited until follow up. 4. Follow up with Dr. Andrey Michael in 2-3 days. 5. Follow up with the patient's own special shopper in 2-3 days. 6. Calcium 1 p.o. daily. 7. Ecotrin 81 mg. 8. Lexapro 20 mg. 9. Lipitor 20 mg q.h.s. 10.Magnesium 250 mg p.o. daily. 11.Metoprolol 25 mg p.o. b.i.d. 12.Multivitamin one p.o. daily. 13.Synthroid 100 mcg p.o. daily. 14.Tylenol 500 mg p.o. b.i.d. 15.Vitamin B12, 1000 mcg p.o. daily. 16.Vitamin B6 100 mg p.o. daily. 17.Vitamin C 1000 mg p.o. daily. 18.Vitamin D3 25 mcg p.o. daily. 19.Vitamin E 400 units p.o. daily. 20.K-Dur 20 mEq p.o. daily. 21.Lasix 40 mg p.o. daily to be adjusted in the outpatient setting. Once again the patient discharged in stable condition. Total time taken 35 minutes. MMODL / IJN: [id number] / NATHANIEL
[2020-12-09] MEDS ORDERED: FUROSEMIDE 40 MG TAB PO SCH (09:00)
== END 2020-12-08 12:59 | disposition home or self-care (01) | DRG 293 ==
LOC: EC 14:42 → 6NMEDSUR 16:30 → OBSVTOIN 12-07 16:38
PROVIDERS: ADMIT Hospitalist; ATTEND Hospitalist
DX: I11.0 Hypertensive heart disease with heart failure (principal); I50.33 Acute on chronic diastolic (congestive) heart failure; E03.9 Hypothyroidism, unspecified; E66.9 Obesity, unspecified; E78.5 Hyperlipidemia, unspecified; I08.0 Rheumatic disorders of both mitral and aortic valves; I25.10 Atherosclerotic heart disease of native coronary artery without angina pectoris; Z68.39 Body mass index [BMI] 39.0-39.9, adult; Z86.79 Personal history of other diseases of the circulatory system; Z79.82 Long term (current) use of aspirin; Z79.890 Hormone replacement therapy; Z79.899 Other long term (current) drug therapy; Z87.891 Personal history of nicotine dependence; Z95.1 Presence of aortocoronary bypass graft; R79.1 Abnormal coagulation profile; Z20.822 Contact with and (suspected) exposure to COVID-19; Z98.51 Tubal ligation status
CPT/HCPCS: 71045; 71275; 80048; 80053; 83880; 84484; 85025; 85379; 85610; 87635; 93005; 93306; 96372; 99284; 99285